=== PATIENT | female | born 1990 ===

== ENCOUNTER 2018-04-23 23:18 | Emergency (ER) | payer SELFPAY ==
[2018-04-23 23:43] VITALS: BP 118/77
[2018-04-23] MEDS ORDERED: ASPIRIN PO ONE (23:43)
== END 2018-04-24 04:00 | disposition left against medical advice (07) ==
LOC: ED 23:18
DX: R07.9 Chest pain, unspecified (principal); Z53.21 Procedure and treatment not carried out due to patient leaving prior to being seen by health care provider
CPT/HCPCS: 93005; 93010